=== PATIENT | female | born 2000 | race Caucasian/White ===

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

== ENCOUNTER 2019-06-07 10:37 | Emergency (ER) | payer BC ==
[2019-06-07] MEDS ORDERED: Ketorolac Tromethamine 30 MG/ML VIAL ONE (11:21)
[2019-06-07] MEDS ORDERED: Mag-Al Plus 1200 MG/1200 MG/120 MG/30 ML UDCUP ONE (11:21)
[2019-06-07] MEDS ORDERED: Lidocaine Viscous Sol 2% 15 ml UD Cup ONE (11:21)
--- NOTE | 2019-06-07 12:43 | RAD ---
2 VIEW CHEST: Date: 06/07/19 HISTORY: Chest pain. FINDINGS: Lung mcgrath are clear. Heart and mediastinum unremarkable. IMPRESSION: No acute findings. POS: [facility]
== END 2019-06-07 12:05 | disposition home or self-care (01) ==
LOC: SCSER 10:37
DX: R07.89 Other chest pain (principal); F90.9 Attention-deficit hyperactivity disorder, unspecified type; Z79.899 Other long term (current) drug therapy
CPT/HCPCS: 71046; 93005; 96372; J1885